=== PATIENT | female | born 1945 | race Caucasian/White ===

== ENCOUNTER 2020-03-29 17:27 | Emergency (ER) | payer MEDICARE, OTHER ==
[~2020-03-29] VITALS: Ht 171.4 cm; Wt 60.5 kg
[~2020-03-29 17:27] MED LIST: ARIP2TAB3 PO; ASPI-41 PO; CLI0.05P TD; PROG200C11 PO
[2020-03-29 22:09] LABS: CLARITY,URINE CLEAR (Clear); COLOR,URINE STRAW (Yellow); GLUCOSE, URINE NEGATIVE (Neg); KETONES,URINE NEGATIVE (Neg); LEUKOCYTE ESTERASE ,URINE TRACE (Neg); NITRITES, URINE NEGATIVE (Neg); OCCULT BLOOD,URINE TRACE-INTACT (Neg); PROTEIN,URINE NEGATIVE (Neg); UROBILINOGEN,URINE 0.2 E.U/dL (0.2-1.0)
[2020-03-29 22:10] LABS: UA COLLECTION TYPE CLN CATCH MIDSTREAM
[2020-03-29 22:14] LABS: BACTERIA,URINE NONE SEEN /HPF (Neg); RBC,URINE 0-2 /HPF (0-2); WBC,URINE 0-4 /HPF (0-4)
[2020-03-29 22:15] LABS: SQUAMOUS EPITHELIAL CELL,UR MODERATE /LPF (FEW)
[2020-03-29 22:21] LABS: URINE AMPHETAMINE SCREEN NEGATIVE (Neg); URINE BARBITUATE SCREEN NEGATIVE (Neg); URINE BENZODIAZEPINES SCREEN NEGATIVE (Neg); URINE CANNABINOID SCREEN NEGATIVE (Neg); URINE COCAINE SCREEN NEGATIVE (Neg); URINE METHADONE SCREEN NEGATIVE (Neg); URINE OPIATE SCREEN NEGATIVE (Neg); URINE PHENCYCLIDINE SCREEN NEGATIVE (Neg)
[2020-03-29 22:29] LABS: BASOPHILS % (AUTO) 0.5 % (0-1); EOSINOPHILS # (AUTO) 0.1 X10'3 (0-0.9); EOSINOPHILS % (AUTO) 1.4 % (0-6); HEMATOCRIT 40.2 % (35.0-45.0); HEMOGLOBIN 13.2 g/dl (12.0-16.0); LYMPHOCYTES # (AUTO) 0.4 X10'3 (1.1-4.8); LYMPHOCYTES % (AUTO) 7.2 % (21-51); MEAN CORPUSCULAR HEMOGLOBIN 29.9 PG (27.0-31.0); MEAN CORPUSCULAR HGB CONC 32.9 g/dL (33.0-36.5); MEAN CORPUSCULAR VOLUME 90.8 FL (78-98); MEAN PLATELET VOLUME 9.3 FL (7.4-10.4); MONOCYTES # (AUTO) 0.6 X10'3 (0-0.9); MONOCYTES % (AUTO) 11.2 % (2-12); NEUTROPHILS % (AUTO) 79.7 % (42-75); PLATELET COUNT 208 X10'3 (140-440); RED BLOOD COUNT 4.43 X10'6 (4.20-5.60)
[2020-03-29 22:39] LABS: ALANINE AMINOTRANSFERASE 12 U/L (12-78); ALBUMIN 3.3 G/DL (3.4-5.0); ALBUMIN/GLOBULIN RATIO 0.9 (1.1-1.5); ALKALINE PHOSPHATASE 119 IU/L (46-116); ANION GAP 8 (8-16); ASPARTATE AMINO TRANSFERASE 21 U/L (10-37); BILIRUBIN,TOTAL 0.3 MG/DL (0.1-1.0); BLOOD UREA NITROGEN 11 MG/DL (7-18); BUN/CREATININE RATIO 14.1 (6.6-38.0); CALCIUM 8.5 MG/DL (8.5-10.1); CHLORIDE 102 MMOL/L (99-107); CREATININE 0.78 MG/DL (0.40-0.90); GLUCOSE 104 MG/DL (70-104); POTASSIUM 3.7 MMOL/L (3.5-5.1); SODIUM 136 MMOL/L (135-145); TOTAL CARBON DIOXIDE 25.9 MMOL/L (24-32); eGFR 72 ML/MIN
--- NOTE | 2020-03-29 22:50 | NUR ---
PT TO CT VIA WHEEL CHAIR
--- NOTE | 2020-03-29 23:03 | NUR ---
PT ASKED FOR FOOD . PT GIVEN A SIDE SALAD APPLE SAUCE, AND WATER . SHE IS EATING SHE IS TALKING TO HER FOOD . SHE APPEARS TO BE HAVING A CONERSATION WITH SOME ONE , WHEN ASKED WHO SHE WAS TALKING TOO , PATIENT REPLIES " I AM TALKING TO MYSELF ABOUT THE APPLES IN THE APPLE SAUCE , AND MAKING SURE THERE ISNT ANYTHING " UNPURE" OF WHAT I PUT IN MY BODY " PT STATSE SHE PUTS " NOTHING IN HER BODY THAT ISNT GOOD OF IT "
--- NOTE | 2020-03-29 23:03 | NUR ---
PT BACK FROM CT
--- NOTE | 2020-03-29 23:06 | NUR ---
INTERPRETER FOR THE DEAF ALFREDO AT BEDSIDE TO FILLORTHO ORDERS FORO LEFT WRIST SPLINT . PT IS TALKING ABOUT HER WEIGHT WHEN THE WRSIT IMMOBLIZER IS BEING PLACED . STATES " IUSED TO BE A SIZE 12 I AM NOW A SIZE 8 " TECH LEAVES ROOM , AND THIS RECORDER RITES , THE PATIENT CONTINUE TO TALK EITHER TO HERSELF OR SOMEONE THAT IS NOT IN STEVEN ROOM . PT IS MU,,BLONG ABOUT NOT BEING ABLE TO GO HOME AND TAHT SOMEONE TOLD HER SHE CANT STAY AT THE HOUSE , WHEN ASKED HER AGAIN WHO SHE IS TALKING TO SHE STARTS TO LAUGH .
--- NOTE | 2020-03-29 23:10 | NUR ---
PT IS CURRENTLY WATING HER SALAD .
--- NOTE | 2020-03-29 23:45 | NUR ---
INFORMED PATIENT THAT I WAS RALPH GTOPUT HER SANDLES IN A BELONGINGS BAG . REACHED DOWN TO GRAB SANDLES. AND PATIENT RIPPED THEM OUT OF MY HANDS AND SWUNG , ALMOST HITTIN GM EIN THE HEAD . REMINDED PATIENT THAT IT IS INAPPROPRIATE TO HIT PEOPLE . PT REPLEID " IT WAS AN ACCIDENT " REDIRECTED PATIENT AGAIN TO ATTEMPT TO CHANGING INTO GREEN SCRUBS WITHOUT SUCESS AT THIS TIME WILL CONTINUE TO MONITOR ADN REASSESS
--- NOTE | 2020-03-30 | NUR ---
PT SITTING IN HER BED READYING HER BIBLE
--- NOTE | 2020-03-30 00:30 | NUR ---
PLAN OF CARE UPDATED WITH PATIENT . PT INFORMED SHE IS ON A 179 HOLD AND THAT SHE WILL NEED A [facility] EVALUATION . PT STATES SHE DOES NOT WAN TANYTING FORM STAFF . " WE ARE POSSESED AND WE WANT TO DRUG HER AND HURT HER " " pT REFUSES TO GIVE UP ANY BELONGINGS SHE HAS OR CHANGE INTO GREEN SCRUBS. PT MUMBLIN GFROM TIME TO TIME , LIKE SHE IS TALKING TO SOMEONE TAHTS NOT HERER . WHEN ASKING PT IF SHE HERES VOICES OR HALLUINATIONS PT DENIES THEM . BUT IS TALKING TO SOMEONE THAT IS NOT PRESENT
--- NOTE | 2020-03-30 01:30 | NUR ---
ENCOURAGED PATIENT TO GIVE UP HER BELONGINGS AND T=CHANGE INTO GREEN SCRUBS. PT VERBALIZED SHE WILL NEVER CHANGE SHE WANTS TO STAY IN HER OWN CLOTHES .
--- NOTE | 2020-03-30 02:00 | NUR ---
PT STILL ASKIN GTO LEAVE STATING I DONT WANT TO BE DRUGGED I DONT WANT TO EAT POISON WHEN OFFERED ANY TIME OF FOOD THAT IS NOT PREPACKAGED AND SEALED
--- NOTE | 2020-03-30 03:02 | NUR ---
PT WORKED OFF UNIT AND OUT OF LOBBY TO HOSPITAL PARKING LOT . PT WOULD NOT STOP WHEN ASKED TO STOP .PT SPED UP WALK SPEED AND AND CROSS THE STREET TO THE [facility] PARKING LOT . [facility] CALLED TO HELP GET PAIENT BACK TO ER . RP[facility]enson QUESTIONED THE PATIENT SECURITYT 2 TECH AND 2 RN PRESENT . ALL STAFF TRYING TO GET THE PATIENT BACK TO HOSPITLA . BED
--- NOTE | 2020-03-30 03:08 | NUR ---
PT WALKED OUT OF ER AND WAS SEEN IN THE PARKING LOT WHERE SHE WAS CONFRONTED BY STAFF AND ASKED TO RETURN TO HER ROOM. SHE WILL NOT LISTEN AND IS TAKING OFF TOWARD THE PARKING STRUCTURE. [facility] HAS BEEN CALLED AND STAFF IS STILL TRYING TO GET PT TO RETURN.
--- NOTE | 2020-03-30 03:44 | NUR ---
[facility] MAKE CONTACT WITH PATIENT AND SHE HAS BEEN BROUGHT BACK TO ROOM 10. PRIMARY RN SPEAKING WITH MD AT THIS TIME.
--- NOTE | 2020-03-30 03:45 | NUR ---
PT BACK TO THE FLOOR AND IN ROOM 10 . PT STILL REFUSING TO COROPORATE WITH HOSPITAL POLICY . EDUCATED PATIENT AGAIN WHY SHE IS HERE AND THAT IT WOULD BE SAFEST IF SHE WAITED TIL THE AM FOR A COMPLETET ELVAUATION . PT VOLUNTARY WALKED REFUSING WHEEL CHAIR TO ROOM 10
[2020-03-30] MEDS ORDERED: LORazepam 1 MG tablet PO ONE (03:50)
[2020-03-30] MEDS ORDERED: diphenhydrAMINE 50 mg/ml inj IM ONE (03:50)
[2020-03-30] MEDS ORDERED: ziprasidone IM 20mg inj **IM only IM ONE (03:50)
[2020-03-30] MEDS ORDERED: LORazepam 2 mg/ml vial IM ONE (04:00)
--- NOTE | 2020-03-30 04:21 | NUR ---
PACKET FAXED TO [facility]
--- NOTE | 2020-03-30 05:06 | NUR ---
PT WOULD NOT COROPORATE PT REFUSING TO CHANGE INTO GREEN SCRUBS/ PT THREATENING TO LEAVE . WENT TO ROOM TO TELL PT SHE NEED TO ALLOW NURSING STAFF TO STORE HER BELONGINGS . PT REFUSEING TO GIVE NURSING STAFF HER BELONGINGS ATTEMPTED TO SLOWLY TAKE PATIENTS BOOK AND SHE BEGAN TO SWING AND HIT STAFF WITH HER BOOK. PT WAS HELD IN PLACE BY NURSING STAFF AND MEDICATED IM TO THE RIGHT GLUET. PT SCREAMING AND YELLING . POST INJECTION PATIENT IS LAYING IN BED HER BED WITH HER BOOK BACK IN HER HANDS . PT IS TOLD THAT SHE NEEDS TO CHANGE INTO GREEN SCRUBS AGAIN . WILL ATTEMPT AGAIN ONCE MEDICATION TAKES EFFECT
[2020-03-30] MEDS ORDERED: NO HOME MEDS (05:22)
--- NOTE | 2020-03-30 05:23 | NUR ---
REMOVED PATIENT SANDLES AND PALCED SOCKS ON HER FEET
--- NOTE | 2020-03-30 05:33 | NUR ---
MED REC COMPLETED
--- NOTE | 2020-03-30 05:45 | NUR ---
MILES DAVIS DCHARGE NURSE AWARE PT WILL NOT CHANGE INTO GREEN SCRUBS . cHARGE NURSE STATED " WAIT TILL THE MEDS KICK IN AND TAKE EFFECT " BEFORE TRYING ANOTHER CATH .
--- NOTE | 2020-03-30 07:12 | NUR ---
PT CURRENTLY RESTING SUPINE IN BED WITH PASTORA VEGA UNLABORED WILL CONTINUE TO MONITOR AND REASSES
--- NOTE | 2020-03-30 07:39 | NUR ---
Patient's son, Bunny called to check on patient. Number: [phone].
--- NOTE | 2020-03-30 10:41 | NUR ---
[facility] IN TO EVAL PT BUT PT STILL TOO SOMNOLENT AFTER B52 MEDS. THEY WILL CHECK BACK IN LATER.
--- NOTE | 2020-03-30 11:06 | NUR ---
TSH BACK HIGH AT 7.16, MD CRENSHAW.
--- NOTE | 2020-03-30 13:21 | NUR ---
PT LAYING IN BED READING HER BIBLE CALMLY, LUNCH TRAY GIVEN.
--- NOTE | 2020-03-30 14:18 | NUR ---
DALLIN TALKING WITH PT.
--- NOTE | 2020-03-30 14:36 | NUR ---
PT ATE ONLY THE BANANA AT LUNCH STATING SHE HAS MANY FOOD ALLERGIES AND WONT EAT DAIRY, ONLY FRUITS AND VEGTABLES, HOWEVER DID NOT EAT THE MIXED FRUIT ON HER TRAY OR FRUIT JUICE. RETRIVED ANOTHER BANANA FOR PT AND SHE ASKED IF I HAD ANOTHER BRAND BECAUSE THE BUS DRIVER THE FRONT WAS DIFFERENT. STATES SHE WILL ONLY DRINK BOTTLED ARROWHEAD WATER ROOM TEMP. BROUGHT PT NESTLE BOTTLED WATER AND SHE STATED SHE WOULD TRY IT. ALSO ATE APPLESAUCE. DIETARY NOTIFIED. I INFORMED PT WE WOULD TRY OUR BEST TO ACCOMADATE HER FOOD REUESTS.
--- NOTE | 2020-03-30 14:44 | NUR ---
PT APPEARS VERY PARANOID STATING SHE THINKS SHE WILL BE POISONED IF SHE EATS THE WRONG THING. STATES SHE WAS MADE TO DRINK DISTILLED WATER WHEN SHE WAS AND LOST ALL HER SALT SO NOW NOTHING IS SAFE.
--- NOTE | 2020-03-30 16:46 | NUR ---
Break RN note:patient on left meneses position,reading the bible.
--- NOTE | 2020-03-30 17:31 | NUR ---
WAITING BROKER ASSISTANT [facility] THINKS PT DOES NOT MEET [address]ITER[address] BUT NEEDS BROKER ASSISTANT TO DETERMINE HER HOUSING.
--- NOTE | 2020-03-30 18:08 | NUR ---
PT SON HERE TO SEE PT, PT REMAINING CALM DURING VISIT.
--- NOTE | 2020-03-30 19:13 | NUR ---
Spoke to [facility] office about status of patient and the possibility of patient not being placed on a 5150 hold. Was informed that [facility] has released the patient completely and that the case workers notes would be faxed over shortly. Notified charge account clerk & attempted to reach patient's son Bunny to arrange patient being released
--- NOTE | 2020-03-30 19:30 | NUR ---
Spoke with patient's son Bunny about patient being discharged tonight and he stated he is only a short drive away and will be happy to rock picker his mom when she is released
[2020-03-30 21:16] VITALS: BP 142/64
--- NOTE | 2020-03-30 21:16 | NUR ---
Patient's son Bunny en route to pick patient up. Patient given clothes to get dressed and purse.
== END 2020-03-30 21:29 | disposition home or self-care (01) ==
LOC: ER 17:27
DX: F22 Delusional disorders (principal); M54.2 Cervicalgia; M25.512 Pain in left shoulder; M25.532 Pain in left wrist; G89.29 Other chronic pain; Z98.890 Other specified postprocedural states; Z88.6 Allergy status to analgesic agent; Z91.012 Allergy to eggs; Z91.040 Latex allergy status; Z91.011 Allergy to milk products; Z88.5 Allergy status to narcotic agent; Z91.010 Allergy to peanuts; Z88.0 Allergy status to penicillin; Z88.2 Allergy status to sulfonamides; Z79.899 Other long term (current) drug therapy; Z88.1 Allergy status to other antibiotic agents; V98.8XXA Other specified transport accidents, initial encounter; Y93.89 Activity, other specified; Y92.59 Other trade areas as the place of occurrence of the external cause; Y99.8 Other external cause status
CPT/HCPCS: 29125; 36415; 70450; 73110; 80053; 80305; 81001; 84443; 85025; 96372; 99285; J1200; J2060; J3486

== ENCOUNTER 2022-06-23 16:18 | Emergency (ER) | payer MEDICARE, OTHER ==
[~2022-06-23] VITALS: Ht 172.7 cm; Wt 56.8 kg
[~2022-06-23 16:18] MED LIST changes: -ARIP2TAB3 PO; -ASPI-41 PO; -CLI0.05P TD; +NO HOME MEDS; -PROG200C11 PO
--- NOTE | 2022-06-23 16:35 | NUR ---
PT IS A POOR HISTORIAN. PT SON IS ABLE TO PROVIDE A LOT MORE DEPTH AND CLARITY TO THE SITUATION AT HAND. PT'S SON IS DPOA.
[2022-06-23] MEDS ORDERED: ondansetron/PF 4mg/2ml inj IV ONE (17:05)
[2022-06-23] MEDS ORDERED: morphine 4 MG/ML inj SYRINge IV ONE ×2 (17:05→19:10)
--- NOTE | 2022-06-23 18:25 | NUR ---
Laying comfortably on marko, son at bedside.
--- NOTE | 2022-06-23 19:40 | NUR ---
PATIENT AMBULATED TO BATHROOM WITH STANDBY ASSIST APPROX. 30 FEET . USED THE BATHROOM INDEPENDENTLY,AMBULATED BY TO ROOM SAFTLY.
--- NOTE | 2022-06-23 19:49 | NUR ---
Patient's son is refusing to take patient home, says she is unable to care for self. Both HORTENSIA Aguilar and I have explained to the family that we cannot admitt someone just because they want us too. Her son is now trying to says she has mental health issues and should be admitted for observation. He has now told out scorer singleIsaias Sparks, they will not take her home. STEPHANIE Zazueta and I went out to the ambulance bay where the family was parked and they argued with us that they could not take care of her and "there is no place for her at our home". The daughter in law says she is a general house worker at [employer] and "We can"t discharge her is she is not safe". The patient passed a gait test. Eddie Venegas RN was called for back up
--- NOTE | 2022-06-23 20:25 | NUR ---
STEPHANIE Venegas spent over an hour outside talking with the family, they eventually to her with them.
[2022-06-23 20:26] VITALS: BP 136/73
== END 2022-06-23 20:35 | disposition home or self-care (01) ==
LOC: ER 16:18
DX: S42.431A Displaced fracture (avulsion) of lateral epicondyle of right humerus, initial encounter for closed fracture (principal); M79.601 Pain in right arm; G89.29 Other chronic pain; Z98.890 Other specified postprocedural states; Z88.0 Allergy status to penicillin; Z88.8 Allergy status to other drugs, medicaments and biological substances; Z91.030 Bee allergy status; Z91.012 Allergy to eggs; Z91.010 Allergy to peanuts; Z88.2 Allergy status to sulfonamides; Z88.6 Allergy status to analgesic agent; W19.XXXA Unspecified fall, initial encounter; Y93.89 Activity, other specified; Y92.89 Other specified places as the place of occurrence of the external cause; Y99.8 Other external cause status
CPT/HCPCS: 29105; 70450; 72125; 73060; 73090; 73110; 73564; 96374; 96375; 99284; J2270; J2405; A4565